=== PATIENT | female | born 1960 | race Caucasian/White ===

== ENCOUNTER 2020-05-30 | Emergency (ER) | payer MEDICARE ==
[2020-05-30] MEDS ORDERED: OMEPRAZOLE10 MG PO (17:46)
[2020-05-30] MEDS ORDERED: PAROXETINE10 MG PO (17:47)
[2020-05-30] MEDS ORDERED: PRAMIPEXOLE D0.25 MG PO (17:49)
[2020-05-30] MEDS ORDERED: LISINOPRIL20 M1 PO (17:50)
[2020-05-30] MEDS ORDERED: TRAZODONE50 MG PO (17:50)
[2020-05-30] MEDS ORDERED: TOPAMAX100 MG PO (17:51)
[2020-05-30] MEDS ORDERED: FLEXERIL5 MG PO (17:52)
== END 2020-05-30 19:10 | disposition home or self-care (01) ==
DX: S50.11XA Contusion of right forearm, initial encounter (principal); I10 Essential (primary) hypertension; F17.210 Nicotine dependence, cigarettes, uncomplicated; W20.8XXA Other cause of strike by thrown, projected or falling object, initial encounter

== ENCOUNTER 2021-01-24 19:17 | Emergency (ER) | payer MEDICARE ==
[~2021-01-24] VITALS: Ht 167.6 cm; Wt 77.0 kg
[~2021-01-24 19:17] MED LIST: FLEXERIL5 MG PO; LISINOPRIL20 M1 PO; OMEPRAZOLE10 MG PO; PAROXETINE10 MG PO; PRAMIPEXOLE D0.25 MG PO; TOPAMAX100 MG PO; TRAZODONE50 MG PO
[2021-01-24 19:20] VITALS: BP 138/83
[2021-01-24] MEDS ORDERED: VIBRAMYCIN100 M2 PO ×2 (19:39→21:15)
== END 2021-01-24 21:15 | disposition home or self-care (01) ==
LOC: ED 19:17
DX: H60.12 Cellulitis of left external ear (principal); S01.302A Unspecified open wound of left ear, initial encounter; I10 Essential (primary) hypertension; F17.200 Nicotine dependence, unspecified, uncomplicated; X58.XXXA Exposure to other specified factors, initial encounter

== ENCOUNTER 2021-06-04 21:43 | Emergency (ER) | payer MEDICARE ==
[~2021-06-04] VITALS: Ht 167.6 cm; Wt 76.3 kg
[~2021-06-04 21:43] MED LIST changes: +VIBRAMYCIN100 M2 PO
[2021-06-04 23:23] LABS: HEMATOCRIT 41.3 % (37.0-47.0); IMMATURE GRANULOCYTES 0.1 % (0.0-5.0); MEAN CELL VOLUME 94.9 fL CALC (80.0-100.0); MEAN CORPUSCULAR HGB 32.2 pG CALC (26.0-32.0); MEAN CORPUSCULAR HGB CONC 33.9 g/dL CAL (32.0-36.0); NEUT# 4.52 thou/uL (2.00-7.15); RED BLOOD COUNT 4.35 mill/uL (4.20-5.60); RED CELL DISTRI WIDTH 12.2 % (11.5-15.5)
[2021-06-04 23:32] LABS: ALBUMIN 4.1 g/dL (3.2-5.0); ALKALINE PHOSPHATASE 49 u/l (38-126); ANION GAP 9 (6-22 (CALC)); BILIRUBIN, TOTAL 0.3 mg/dL (0.0-1.4); BUN 10 mg/dL (7-17); BUN/CREATININE RATIO 13 (12-20 (CALC)); CARBON DIOXIDE 24 mmol/l (22-30); CHLORIDE 109 mmol/l (95-108); CREATININE 0.7 mg/dL (0.5-1.0); GFR > 60 ML/MIN (>=60 (CALC)); GFR FOR AFR.AMER. > 60 ML/MIN (>=60 (CALC)); POTASSIUM 4.2 mmol/l (3.5-5.1); SGOT/AST 22 u/l (14-36); SODIUM 138 mmol/l (137-146); TOTAL PROTEIN 6.9 g/dL (6.3-8.2)
[2021-06-04] MEDS ORDERED: DOXYCYCL HYC100 M4 PO (23:41)
[2021-06-04 23:58] VITALS: BP 138/96
== END 2021-06-05 00:14 | disposition home or self-care (01) ==
LOC: ED 21:43
PROVIDERS: Emergency Medicine
DX: L08.9 Local infection of the skin and subcutaneous tissue, unspecified (principal); I10 Essential (primary) hypertension; F17.200 Nicotine dependence, unspecified, uncomplicated